=== PATIENT | male | born 1955 | race Caucasian/White ===

== ENCOUNTER 2016-05-14 17:13 | Emergency (ER) | payer OTHER ==
[~2016-05-14] VITALS: Ht 157.5 cm; Wt 77.1 kg
[2016-05-14] MEDS ORDERED: IBUPROFEN 600600 M1 PO (19:23)
[2016-05-14] MEDS ORDERED: FLEXERIL PO (19:23)
[2016-05-14] MEDS ORDERED: NORCO 5-325 TA1 EACH PO (19:23)
[2016-05-14 19:49] VITALS: BP 167/93
== END 2016-05-14 19:50 | disposition home or self-care (01) ==
LOC: ER 17:13
DX: S29.012A Strain of muscle and tendon of back wall of thorax, initial encounter (principal); S39.012A Strain of muscle, fascia and tendon of lower back, initial encounter; Z77.22 Contact with and (suspected) exposure to environmental tobacco smoke (acute) (chronic); V89.0XXA Person injured in unspecified motor-vehicle accident, nontraffic, initial encounter; Y93.89 Activity, other specified; Y92.415 Exit ramp or entrance ramp of street or highway as the place of occurrence of the external cause; Y99.8 Other external cause status